=== PATIENT | female | born 1980 | race Caucasian/White ===

== ENCOUNTER → 2016-05-07 | Outpatient (CLI) | payer BC ==
--- NOTE | 2016-05-07 09:44 | CT ---
EXAMINATION TYPE: CT brain wo con DATE OF EXAM: 05/07/2016 9:39 AM COMPARISON: NONE HISTORY: Migraine Headaches CT DLP: 1054.2 mGycm Automated exposure control for dose reduction was used. FINDINGS: There is no acute intracranial hemorrhage, mass effect, or midline shift identified. The ventricles and sulci are within normal limits in size. Calvarium intact changes of very mild chronic sinusitis. IMPRESSION: No acute intracranial hemorrhage, mass effect, or midline shift is seen. If symptoms persist consider MRI.
--- NOTE | 2016-05-07 09:54 | US ---
EXAMINATION TYPE: US thyroid st tissue head/neck DATE OF EXAM: 05/07/2016 9:45 AM COMPARISON: NONE CLINICAL HISTORY: E04.1 Thyroid Nodule. Physican felt thryoid looked enlarged or possible nodule MEASUREMENTS: GLAND SIZE: Right Lobe: 4.3 x 1.7 x 1.7cm Left Lobe: 4.0 x 1.1 x 1.6cm Isthmus Thickness: 0.3cm NODULES RIGHT: # of nodules measured on right: 0 LEFT: # of nodules measured on left: 0 ISTHMUS: # of nodules measured within isthmus: 0 FINDINGS: Homogeneous tissue bilaterally with no solid or cystic nodules seen. IMPRESSION: 1. No thyroid nodule identified.
== END | disposition home or self-care (01) ==
LOC: RADCTMAIN 08:51
PROVIDERS: ATTEND Family Medicine
DX: G43.909 Migraine, unspecified, not intractable, without status migrainosus (principal); E04.1 Nontoxic single thyroid nodule
CPT/HCPCS: 70450; 76536

== ENCOUNTER 2018-08-06 17:56 | Emergency (ER) | payer BC ==
--- NOTE | 2018-08-06 20:02 | ED ---
General Adult HPI - General Chief complaint: Chest Pain Stated complaint: chest pain, abn EKG Time Seen by Provider: 08/06/18 18:10 Source: patient, RN notes reviewed Mode of arrival: ambulatory Limitations: no limitations - History of Present Illness Initial comments: This is a 37-year-old female who presents emergency Department complaining of chest pain which is constant in nature for one week. Patient states it's the heaviness sensation that she always gets when she has her asthma. Patient states she's been having to use her inhaler much more over the last week. Patient states today on top of the constant chest pressure she was having some sharp pains and last one or 2 seconds and it occurred with movement usually. Patient states currently she does not have any sharp pain and she states this slight heaviness is there consistently for a week and is currently there but only lightly. Patient denies any shortness of breath currently. She states she just did a breathing treatment prior to arrival. Patient did go to an urgent care earlier and they directed her to come to us per patient denies any fever chills. Patient denies any calf pain. Patient denies any leg swelling. Patient denies any control. Patient denies any recent long trips. She denies any lightheadedness or near syncopal episode. Patient denies any diabe candelario high blood pressure or smoking history. Patient denies any cholesterol she controls her cholesterol with diet. - Related Data Home Medications Medication Instructions Recorded Confirmed Albuterol Inhaler [Ventolin Hfa 1 - 2 puff INHALATION RT-Q6H PRN 08/06/18 08/06/18 Inhaler] Albuterol Nebulized [Ventolin 2.5 mg INHALATION RT-QID PRN 08/06/18 08/06/18 Nebulized] Fluticasone Nasal [place] [Flonase 1 spray EA NOSTRIL DAILY 08/06/18 08/06/18 Nasal [place]] Lansoprazole [Prevacid] 15 mg PO DAILY 08/06/18 08/06/18 Loratadine [Claritin] 10 mg PO DAILY 08/06/18 08/06/18 Magnesium Oxide [Mag-Ox] 250 mg PO HS 08/06/18 08/06/18 Montelukast [Singulair] 10 mg PO DAILY 08/06/18 08/06/18 Allergies Allergy/AdvReac Type Severity Reaction Status Date / Time No Known Allergies Allergy Verified 08/06/18 20:03 Review of Systems ROS Statement: Those systems with pertinent positive or pertinent negative responses have been documented in the HPI. ROS Other: All systems not noted in ROS Statement are negative. Past Medical History Past Medical History: Asthma, GERD/Reflux History of Any Multi-Drug Resistant Organisms: None Reported Past Surgical History: Cholecystectomy, Orthopedic Surgery Past Psychological History: No Psychological Hx Reported Smoking Status: Never smoker Past Alcohol Use History: Occasional Past Drug Use History: None Reported General Exam - General Exam Comments Initial Comments: GENERAL: Patient is well-developed and well-nourished. Patient is nontoxic and well- hydrated and is in no acute distress. ENT: Neck is soft and supple. No significant lymphadenopathy is noted. Oropharynx is clear. Moist mucous membranes. Neck has full range of motion without eliciting any pain. EYES: The sclera were anicteric and conjunctiva were pink and moist. Extraocular movements were intact and pupils were equal round and reactive to light. Eyelids were unremarkable. PULMONARY: Unlabored respirations. Good breath sounds bilaterally. No audible rales rhonchi or wheezing was noted. CARDIOVASCULAR: There is a regular rate and rhythm without any murmurs gallops or rubs. ABDOMEN: Soft and nontender with normal bowel sounds. SKIN: Skin is clear with no lesions or rashes and otherwise unremarkable. NEUROLOGIC: Patient is alert and oriented x3. Cranial nerves II through XII are grossly intact. Motor and sensory are also intact. Normal speech, volume and content. Symmetrical smile. MUSCULOSKELETAL: Normal extremities with adequate strength and full range of motion. No lower extremity swelling or edema. No calf tenderness. LYMPHATICS: No significant lymphadenopathy is noted PSYCHIATRIC: Normal psychiatric evaluation. Limitations: no limitations Course Vital Signs 08/06/18 08/06/18 08/06/18 18:07 19:46 20:48 Temperature 98.4 F 98.6 F Pulse Rate 84 92 96 Respiratory 18 15 16 Rate Blood Pressure 112/72 115/83 106/66 O2 Sat by Pulse 98 98 95 Oximetry Medical Decision Making - Medical Decision Making EKG shows normal sinus rhythm at [address] interval 150 QRS is 70 QT interval 32 QTC is 389. Patient's EKG shows no ST segment elevation or depression or T wave abnormalities are noted patient has been comfortable throughout her ED stay she does have some chest pain here today by movement while in the emergency department. Chest x-ray shows no acute abnormality. - Lab Data Result diagrams: 08/06/18 19:50 08/06/18 19:50 Lab Results 08/06/18 08/06/18 08/06/18 Range/Units 19:50 19:50 19:50 WBC 10.4 (3.8-10.6) k/uL RBC 4.82 (3.80-5.40) m/uL Hgb 13.6 (11.4-16.0) gm/dL Hct 42.1 (34.0-46.0) % MCV 87.3 (80.0-100.0) fL MCH 28.2 (25.0-35.0) pg MCHC 32.3 (31.0-37.0) g/dL RDW 12.5 (11.5-15.5) % Plt Count 307 (150-450) k/uL Neutrophils % 75 % Lymphocytes % 18 % Monocytes % 4 % Eosinophils % 2 % Basophils % 1 % Neutrophils # 7.8 H (1.3-7.7) k/uL Lymphocytes # 1.9 (1.0-4.8) k/uL Monocytes # 0.4 (0-1.0) k/uL Eosinophils # 0.2 (0-0.7) k/uL Basophils # 0.1 (0-0.2) k/uL PT 9.8 (9.0-12.0) sec INR 0.9 (<1.2) APTT 29.4 (22.0-30.0) sec Sodium 139 (137-145) mmol/L Potassium 4.6 (3.5-5.1) mmol/L Chloride 106 (98-107) mmol/L Carbon Dioxide 24 (22-30) mmol/L Anion Gap 9 mmol/L BUN 14 (7-17) mg/dL Creatinine 0.78 (0.52-1.04) mg/dL Est GFR (CKD-EPI)AfAm >90 (>60 ml/min/1.73 sqM) Est GFR (CKD-EPI)NonAf >90 (>60 ml/min/1.73 sqM) Glucose 96 (74-99) mg/dL Calcium 9.8 (8.4-10.2) mg/dL Magnesium 2.1 (1.6-2.3) mg/dL Total Bilirubin 0.4 (0.2-1.3) mg/dL AST 31 (14-36) U/L ALT 41 (9-52) U/L Alkaline Phosphatase 73 (38-126) U/L Total Protein 7.4 (6.3-8.2) g/dL Albumin 4.6 (3.5-5.0) g/dL Disposition Clinical Impression: Atypical chest pain Disposition: HOME SELF-CARE Condition: Good Instructions (If sedation given, give patient instructions): Chest Pain (ED) Is patient prescribed a controlled substance at d/c from ED?: No Referrals: Tre Romo DO [Primary Care Provider] - 1-2 days Time of Disposition: 21:14
[2018-08-06 20:42] LABS: Basophils # (A) 0.1 k/uL (0-0.2); Basophils % (A) 1 %; Eosinophils # (A) 0.2 k/uL (0-0.7); Eosinophils % (A) 2 %; HCT 42.1 % (34.0-46.0); HGB 13.6 gm/dL (11.4-16.0); Lymphocytes # (A) 1.9 k/uL (1.0-4.8); Lymphocytes % (A) 18 %; MCH 28.2 pg (25.0-35.0); MCHC 32.3 g/dL (31.0-37.0); MCV 87.3 fL (80.0-100.0); Monocytes # (A) 0.4 k/uL (0-1.0); Monocytes % (A) 4 %; Neutrophils # (A) 7.8 k/uL (1.3-7.7); Neutrophils % (A) 75 %; Platelet Count 307 k/uL (150-450); RBC 4.82 m/uL (3.80-5.40); RDW 12.5 % (11.5-15.5); WBC 10.4 k/uL (3.8-10.6)
[2018-08-06 20:51] LABS: INR 0.9 (<1.2); Partial Thromboplastin Time 29.4 sec (22.0-30.0); Prothrombin Time 9.8 sec (9.0-12.0)
[2018-08-06 20:57] LABS: ALT 41 U/L (9-52); AST 31 U/L (14-36); Albumin 4.6 g/dL (3.5-5.0); Alkaline Phosphatase 73 U/L (38-126); Anion Gap 9 mmol/L; Blood Urea Nitrogen 14 mg/dL (7-17); Calcium 9.8 mg/dL (8.4-10.2); Carbon Dioxide 24 mmol/L (22-30); Chloride 106 mmol/L (98-107); Glucose 96 mg/dL (74-99); Magnesium 2.1 mg/dL (1.6-2.3); Potassium 4.6 mmol/L (3.5-5.1); Sodium 139 mmol/L (137-145); Total Bilirubin 0.4 mg/dL (0.2-1.3); Total Protein 7.4 g/dL (6.3-8.2)
--- NOTE | 2018-08-06 21:07 | XR ---
EXAMINATION TYPE: XR chest 2V DATE OF EXAM: 08/06/2018 COMPARISON: 12/08/2014 HISTORY: Chest pain TECHNIQUE: Frontal and lateral views of the chest are obtained. FINDINGS: Heart and mediastinum are normal. Lungs are clear. Diaphragm is normal. Bony thorax appear s normal. IMPRESSION: Normal chest. No change.
[2018-08-06] MEDS ORDERED: KETOROLAC 30 MG/ML 1 ML VIAL IVP STA (21:27)
[2018-08-06 21:32] VITALS: BP 110/64; PULSE 80; RESP 15; TEMP 98.4
== END 2018-08-06 19:37 | disposition home or self-care (01) ==
LOC: EC 17:56
DX: R07.89 Other chest pain (principal); J45.909 Unspecified asthma, uncomplicated; K21.9 Gastro-esophageal reflux disease without esophagitis; Z79.51 Long term (current) use of inhaled steroids; Z79.899 Other long term (current) drug therapy
CPT/HCPCS: 36415; 93005; 80053; 83735; 84484; 85025; 85610; 85730; 71046; 99285; 96374; J1885

== ENCOUNTER 2018-10-10 07:19 | Day surgery (SDC) | payer BC ==
[2018-10-08 09:10] VITALS: BMI 27.8
[~2018-10-10 07:19] MED LIST: LACTATED RINGERS 1,000 ML IV SCH; LIDOCAINE 1% 20 ML VIAL (10MG/ML) FOR IV START INTRADERMA PRN
[2018-10-10 07:35] VITALS: TEMP 97
[2018-10-10] MEDS ORDERED: MIDAZOLAM (PF) 2 MG/2 ML VIAL IV ONE (07:46)
[2018-10-10] MEDS ORDERED: LIDOCAINE 1% INJ 10MG/ML (20 ML MDV) ONE (07:57)
[2018-10-10] MEDS ORDERED: PROPOFOL 10 MG/ML 20 ML VIAL IV ONE (07:57)
--- NOTE | 2018-10-10 08:07 | P.PCN ---
Date of Procedure: 10/10/18 Procedure(s) Performed: BRIEF HISTORY: Patient is a 38-year-old, pleasant, 38-year-old white female, scheduled for an upper endoscopy for evaluation long-standing history of GERD of 6 years duration. She has been maintained on Prevacid 30 mg daily for the last 2 months and was in symptoms. PROCEDURE PERFORMED: Esophagogastroduodenoscopy with biopsy. PREOPERATIVE DIAGNOSIS: Long-standing history of GERD. IV sedation per anesthesia. PROCEDURE: After informed consent was obtained, the patient was brought into the endoscopy unit. IV sedation was administered by Anesthesia under continuous monitoring. Initially the Olympus GIF-140 video endoscope was inserted into the mouth. Esophagus intubated without any difficulty. It was gradually advanced into the stomach and duodenum and carefully examined. The bulb and the second part of the duodenum appeared normal. The scope at this time was withdrawn to the stomach, adequately insufflated with air, and upon careful examination, mucosa of the antrum had patchy erythema and biopsies were done from this area. The body, cardia and the fundus appeared normal. The scope was then withdrawn into the esophagus. The GE junction was located at 39 cm from the incisors. Small sliding type hiatal hernia noted. The esophagus appeared normal. There were no erosions or ulcerations seen. Biopsies were done from the distal esophagus and the patient tolerated the procedure well. IMPRESSION: 1. Mild antral gastritis. 2. Small sized Hiatal hernia but no evidence of esophagitis or Gee's esophagus. RECOMMENDATIONS: The findings of this examination were discussed with the patient as well as her family. She will follow with the biopsy results. She was advised to increase the Prevacid 30 mg twice daily for 8 weeks and follow antireflux measures.
[2018-10-10 08:30] VITALS: BP 111/66; PULSE 98; RESP 18
== END 2018-10-10 08:44 | disposition home or self-care (01) ==
LOC: ORWHC2ENDO 07:19
PROVIDERS: ATTEND Internal Medicine Gastroenterology
DX: K29.50 Unspecified chronic gastritis without bleeding (principal); K21.0 Gastro-esophageal reflux disease with esophagitis; K44.9 Diaphragmatic hernia without obstruction or gangrene; J45.909 Unspecified asthma, uncomplicated; Z91.048 Other nonmedicinal substance allergy status; Z79.51 Long term (current) use of inhaled steroids; Z88.5 Allergy status to narcotic agent; Z79.899 Other long term (current) drug therapy
CPT/HCPCS: 81025; 88305; 43239; J2001; J2704; J2250

== ENCOUNTER → 2018-12-30 | Outpatient (CLI) | payer BC ==
--- NOTE | 2018-12-30 14:29 | MM ---
Reason for exam: screening (asymptomatic). Baseline mammogram. History: Family history of breast cancer in paternal aunt at age 50 and breast cancer in paternal aunt at age 60. Physical Findings: Nurse Summary: 1cm nodule in the right breast at 11 o'clock (nurse livia). MG 3D Screening Mammo W/Cad Bilateral CC and MLO view(s) were taken. The breast tissue is extremely dense which could obscure a lesion on mammography. There are innumerable bilateral cysts throughout each quadrant. Bilateral ultrasound recommended. There are bilateral diffuse calcifications. Lateral will be done to assess for layering. These results were verbally communicated with the patient and result sheet given to the patient on 12/30/18. ASSESSMENT: Incomplete: need additional imaging evaluation, BI-RAD 0 RECOMMENDATION: Special view mammogram and ultrasound of both breasts. [facility] will attempt to contact patient to return for supplemental views and ultrasound.
--- NOTE | 2018-12-30 14:33 | MM ---
Reason for exam: additional evaluation requested from abnormal screening. History: Family history of breast cancer in paternal aunt at age 50 and breast cancer in paternal aunt at age 60. Physical Findings: Breast exam preformed at baseline screening. MG 3D Work Up W/Cad SOSA Bilateral ML view(s) were taken. There are again innumerable bilateral masses. Ultrasound is ordered. The bilateral diffuse calcifications nearly all layer on lateral views and appear as milk of calcium, benign. These results were verbally communicated with the patient and result sheet given to the patient on 12/30/18. ASSESSMENT: Benign, BI-RAD 2 RECOMMENDATION: Routine screening mammogram of both breasts at age 42. (or sooner if clinically indicated)
--- NOTE | 2018-12-30 14:36 | USB ---
Reason for exam: additional evaluation requested from abnormal screening. History: Family history of breast cancer in paternal aunt at age 50 and breast cancer in paternal aunt at age 60. US Breast Workup SOSA Right complete breast ultrasound includes all four quadrants, the retroareolar region and axilla. Finding demonstrates a 15 x 11 x 13mm oval, cystic lesion at 11 o'clock BB and a 22 x 18mm lesion at 12 o'clock. Left complete breast ultrasound includes all four quadrants, the retroareolar region and axilla. Finding demonstrates a 22 x 13mm lesion at 4 o'clock and a 19 x 9 x 18mm lobular, cystic lesion at 11 o'clock with few thin internal septations. Innumerable simple bilateral cysts were seen, the largest and most complex were measured. These results were verbally communicated with the patient and result sheet given to the patient on 12/30/18. ASSESSMENT: Benign, BI-RAD 2 RECOMMENDATION: Routine screening mammogram of both breasts at age 42. (or sooner if clinically indicated)
== END | disposition home or self-care (01) ==
LOC: RADMAMWWP 10:15
PROVIDERS: ATTEND Family Medicine
DX: Z12.31 Encounter for screening mammogram for malignant neoplasm of breast (principal); R92.8 Other abnormal and inconclusive findings on diagnostic imaging of breast
CPT/HCPCS: 77062; 77063; 77066; 77067

== ENCOUNTER → 2019-03-08 | Outpatient (CLI) | payer BC ==
[2019-03-08 17:34] LABS: Luteinizing Hormone 4.8 mIU/mL
[2019-03-08 17:35] LABS: Follicle Stimulating Hormone 8.8 mIU/mL
[2019-03-08 17:47] LABS: T4, Free (Free Thyroxine) 0.8 ng/dL (0.80-1.80)
[2019-03-08 17:49] LABS: DHEA Sulfate 183.2 ug/dL (26.0-430.0)
[2019-03-08 18:58] LABS: ACTH 12.6 pg/mL (0.00-45.99)
== END | disposition home or self-care (01) ==
LOC: LABWHC1 09:00
PROVIDERS: ATTEND Internal Medicine
DX: E27.40 Unspecified adrenocortical insufficiency (principal); R73.9 Hyperglycemia, unspecified; E04.9 Nontoxic goiter, unspecified
CPT/HCPCS: 36415; 82024; 82088; 82306; 82533; 82627; 82670; 83001; 83002; 84439; 84443; 84481

== ENCOUNTER → 2019-03-10 | Outpatient (CLI) | payer BC ==
--- NOTE | 2019-03-11 07:09 | US ---
EXAMINATION TYPE: US thyroid st tissue head/neck DATE OF EXAM: 03/10/2019 COMPARISON: NONE CLINICAL HISTORY: E04.9 THYROID NODULE. follow up exam, not on meds GLAND SIZE: Right Lobe: 5.1 x 1.9 x 2.4 cm Overall Parenchyma: homogenous Left Lobe: 5.1 x 1.3 x 2.0 cm Overall Parenchyma: homogeneous Isthmus Thickness: 0.4 cm NODULES RIGHT: # of nodules measured on right: 0 LEFT: # of nodules measured on left: 0 ISTHMUS: # of nodules measured in the isthmus: 0 Bilateral neck scanned, no evidence of lymphadenopathy. IMPRESSION: Mildly enlarged thyroid gland with no discrete nodule.
== END | disposition home or self-care (01) ==
LOC: RADUSWWP 16:07
PROVIDERS: ATTEND Internal Medicine
DX: E04.9 Nontoxic goiter, unspecified (principal)
CPT/HCPCS: 76536

== ENCOUNTER → 2020-10-31 | Outpatient (CLI) | payer BC ==
--- NOTE | 2020-10-31 14:26 | XR ---
EXAMINATION TYPE: XR Hip Bilateral Complete DATE OF EXAM: 10/31/2020 COMPARISON: None HISTORY: Bilateral hip pain sciatica TECHNIQUE: Bilateral hips are examined in 2 views each FINDINGS: Femoral heads articulate with the acetabulum. Joint spaces are preserved. No acute fracture s or dislocations are evident. Sacroiliac joints and symphysis pubis within the [id number] is unre markable IMPRESSION: 1. Normal bilateral hips
--- NOTE | 2020-10-31 14:31 | XR ---
EXAMINATION TYPE: XR lumbosacral spine min 4V DATE OF EXAM: 10/31/2020 COMPARISON: None HISTORY: Sciatica, pain left hip pain TECHNIQUE: 5 view lumbar spine FINDINGS: There are 5 lumbar-type vertebral bodies. Pedicles are intact. Disc heights are preserved. Vertebral body heights are preserved. No spondylolytic defects are evident. If additional evaluation would be of benefit, MRI could be performed. IMPRESSION: 1. No acute osseous abnormality lumbar spine
== END | disposition home or self-care (01) ==
LOC: RADXRMAIN 13:47
PROVIDERS: ATTEND Family Medicine
DX: M54.32 Sciatica, left side (principal); M25.552 Pain in left hip; M25.551 Pain in right hip
CPT/HCPCS: 72110; 73521

== ENCOUNTER → 2021-03-12 | Outpatient (CLI) | payer BC ==
--- NOTE | 2021-03-12 09:19 | US ---
EXAMINATION TYPE: US abdomen complete DATE OF EXAM: 03/12/2021 COMPARISON: US Abdomen 2010. CT abdomen 2012 CLINICAL HISTORY: R10.9 ABD PAIN. Left sided abdominal pain. EXAM MEASUREMENTS: Liver Length: 14.2 cm Gallbladder Wall: Surgically absent CBD: 0.4 cm Spleen: 10.5 x 3.5 cm Right Kidney: 11.3 x 4.2 x 4.7 cm Left Kidney: 11.0 x 4.7 x 4.6 cm Pancreas: wnl as seen. Liver: wnl Gallbladder: Surgically absent Evidence for sonographic Christine's sign: No CBD: wnl Spleen: wnl Right Kidney: wnl Left Kidney: wnl Upper IVC: wnl Abd Aorta: wnl No definite abnormality seen today. The liver is homogenous. The intrahepatic portion of the IVC and proximal abdominal aorta are within normal limits. Gallbladder is surgically absent. Common bile duct is unremarkable. The visualized portions of the pancreas are homogenous. The spleen is unremarkable. Kidneys are symmetric and free of hydronephrosis. No renal lesions are seen. IMPRESSION: No acute findings evident on images saved.
== END | disposition home or self-care (01) ==
LOC: RADUSWWP 08:13
PROVIDERS: ATTEND Family Medicine
DX: R10.9 Unspecified abdominal pain (principal)
CPT/HCPCS: 76700

== ENCOUNTER → 2021-07-24 | Outpatient (CLI) | payer BC ==
--- NOTE | 2021-07-24 09:28 | USB ---
Reason for exam: clinical finding. History: Family history of breast cancer in paternal aunt at age 50 and breast cancer in paternal aunt at age 60. Physical Findings: A clinical breast exam by your physician is recommended on an annual basis and results should be correlated with mammographic findings. US Breast BILAT Right complete breast ultrasound includes all four quadrants, the retroareolar region and axilla. Finding demonstrates a 1.9 x 1.1 x 1.6cm and 1.1 x 0.9 x 0.9cm larger thin walled cysts at 12 o'clock, fairly stable, have some internal debris +/- septation. Left complete breast ultrasound includes all four quadrants, the retroareolar region and axilla. Finding demonstrates a 3.3 x 2.1 x 4.2cm lobular, largest thin walled cyst at 10 o'clock and a 0.8 0.7 x 1.0cm lesion at the posterior nipple, suspect non-dependent debris as avascular. Bilateral breast scanned, innumerable cysts. Results were given to the patient verbally at the time of the exam. ASSESSMENT: Probably benign, BI-RAD 3 RECOMMENDATION: Ultrasound of both breasts in 6 months. Manage patient on a clinical basis. Ultrasound FNA can be performed if cysts are painful.
== END | disposition home or self-care (01) ==
LOC: RADUSWWP 08:01
PROVIDERS: ATTEND Obstetrics & Gynecology
DX: N60.02 Solitary cyst of left breast (principal); N60.01 Solitary cyst of right breast

== ENCOUNTER → 2021-11-27 | Outpatient (CLI) | payer BC ==
--- NOTE | 2021-11-27 09:42 | XR ---
EXAMINATION TYPE: XR ankle complete LT DATE OF EXAM: 11/27/2021 COMPARISON: None HISTORY: Pain TECHNIQUE: 3 view left ankle FINDINGS: There may be some minimal soft tissue swelling along the inferior lateral malleolus. Soft t issues otherwise appear unremarkable. Ankle mortise is intact. No acute or subacute fractures are carmel dent. MRI could be performed if evaluation of soft tissues would be of benefit. IMPRESSION: 1. No acute osseous abnormality left ankle. 2. Some mild soft tissue swelling inferior to the lateral malleolus may remain present.
== END | disposition home or self-care (01) ==
LOC: RADXRMAIN 09:19
PROVIDERS: ATTEND Family Medicine
DX: M25.572 Pain in left ankle and joints of left foot (principal)

== ENCOUNTER → 2022-07-10 | Outpatient (CLI) | payer BC ==
[2022-07-10 11:37] LABS: African American GFR (CKD) >90 (>60 ml/min/1.73 sqM); Blood Urea Nitrogen 19 mg/dL (7-17); Non-African American GFR(CKD) >90 (>60 ml/min/1.73 sqM)
--- NOTE | 2022-07-10 12:05 | CT ---
EXAMINATION TYPE: CT chest w con CT DLP: 509 mGycm, Automated exposure control for dose reduction was used. DATE OF EXAM: 07/10/2022 11:59 AM COMPARISON: Chest radiograph 08/06/2018. CLINICAL INDICATION:Female, 41 years old with history of J45.909 UNSPECIFIED ASTHMA, UNCOMPLICATED; P HH, Asthma. TECHNIQUE: Multiple axial images were obtained through the chest following the administration of 100 cc of Isovue 300. FINDINGS: LUNGS/ PLEURA: No pleural effusion, pneumothorax, focal consolidation. No suspicious pulmonary nodule mass. AIRWAY: Patent and unremarkable.. HEART: Size within normal limits. No pericardial effusion. MEDIASTINUM: No evidence of adenopathy. Residual thymic tissue. VASCULATURE: No aortic aneurysm. MUSCULOSKELETAL: No acute osseous abnormalities SOFT TISSUES/LYMPH NODES: Unremarkable. LOWER NECK: No significant findings. UPPER ABDOMEN: Postcholecystectomy changes. IMPRESSION: No acute thoracic process.
== END | disposition home or self-care (01) ==
LOC: RADCTMAIN 10:52
PROVIDERS: ATTEND Family Medicine
DX: J45.909 Unspecified asthma, uncomplicated (principal)
CPT/HCPCS: 82565; 84520; 71260; 36415; Q9967

== ENCOUNTER → 2023-01-17 | Outpatient (CLI) | payer BC ==
[2023-01-17 18:12] LABS: African American GFR (CKD) >90 (>60 ml/min/1.73 sqM); Blood Urea Nitrogen 20 mg/dL (7-17); Non-African American GFR(CKD) >90 (>60 ml/min/1.73 sqM)
--- NOTE | 2023-01-20 09:57 | CT ---
EXAMINATION TYPE: CT brain wo/w con DATE OF EXAM: 01/17/2023 COMPARISON: 05/07/2016 HISTORY: Migraine headaches CT DLP: 2416.1 mGycm Automated exposure control for dose reduction was used. CONTRAST: CT scan of the head is performed with IV Contrast, patient injected with 100 mL of Isovue 300. FINDINGS: There is no abnormal enhancing mass or midline shift identified. The ventricles and sulci are within normal limits in size. The globes are intact and the visualized sinuses are clear. Cerebellar tonsi ls are low-lying in position. IMPRESSION: Low-lying cerebellar tonsils. Recommend MRI of the brain to assess for Chiari I malformation.
== END | disposition home or self-care (01) ==
LOC: RADCTMAIN 17:08
PROVIDERS: ATTEND Family Medicine
DX: G43.909 Migraine, unspecified, not intractable, without status migrainosus (principal); G93.5 Compression of brain
CPT/HCPCS: 82565; 84520; 70470; 36415; Q9967

== ENCOUNTER → 2023-02-19 | Outpatient (CLI) | payer BC ==
--- NOTE | 2023-02-19 20:38 | MR ---
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 COMPARISON: CT 01/17/2023.. TECHNIQUE: Multi planar, multi sequence imaging was performed through the brain including: T1, T2, In version recovery, Diffusion weighted imaging, and gradient echo imaging. No gadolinium was given. FINDINGS: The adams-white junctions, ventricular system, and cisterns appear unremarkable. Midline structures sh ow no abnormality. Diffusion-weighted imaging shows no evidence of restricted diffusion. The suscepti bility weighted images do not reveal any evidence for micro-hemorrhage. The bone marrow signal is within normal limits. Paranasal sinuses and mastoid air cells: No significant paranasal sinus disease. Visualized orbits: Orbital contents are intact. The cerebellar tonsils on today's exam do not extend below the foramen magnum. IMPRESSION: 1. The cerebellar tonsils on today's exam do not extend below the foramen magnum. Prior exam on CT i maging showed mild cerebellar tonsillar ectopia which could be due to patient positioning.. Chiari I malformations need to be distinguished from low-lying tonsils (benign tonsillar ectopia) which is an asymptomatic and incidental finding in normal individuals, whereby the tonsils protrude through the f oramen magnum by no more than 3-5 mm. 2. No evidence of intracranial mass or acute/subacute infarct.
== END | disposition home or self-care (01) ==
LOC: RADMRIMAIN 16:26
PROVIDERS: ATTEND Family Medicine
DX: Q07.00 Arnold-Chiari syndrome without spina bifida or hydrocephalus (principal)
CPT/HCPCS: 70551

== ENCOUNTER → 2024-04-22 | Outpatient (CLI) | payer BC ==
--- NOTE | 2024-04-22 11:44 | XR ---
EXAMINATION TYPE: XR wrist complete LT DATE OF EXAM: 04/22/2024 11:36 AM INDICATION: Patient age:Female; 43 years old; Reason for study: M25.532; [facility]. COMPARISON: Left wrist radiograph 04/30/2022 TECHNIQUE: 4 views of the left wrist. Frontal, navicular, lateral, and oblique. FINDINGS/IMPRESSION: No acute osseous pathology, joint dislocation, or joint effusion. No osseous ero sions. Similar soft tissue prominence of the volar aspect of the wrist.. No significant change in pun ctate 1 mm radiodense round foreign body in the radial volar soft tissue at the level of the distal r adial metaphysis. [facility], , 04/22/2024 11:42 AM
== END | disposition home or self-care (01) ==
LOC: RADXRMAIN 11:09
PROVIDERS: ATTEND Family Medicine
DX: M25.532 Pain in left wrist (principal)